=== PATIENT | male | born 1960 | race Caucasian/White ===

== ENCOUNTER → 2018-09-05 | Outpatient (CLI) | payer OTHER ==
--- NOTE | 2018-09-05 15:06 | CARD ---
MR#: [id number] Date of Study: 09/05/2018 Ordering Physician: VENU POND, Referring Physician: VENU POND Tech: Rachel Howell RDCS APPROVED REPORT EXAM: Two-dimensional and M-mode echocardiogram with Doppler and color Doppler. Other Information Quality : Good INDICATION Murmur 2D DIMENSIONS RVDd2.5 (2.9-3.5cm)Left Atrium(2D)3.5 (1.6-4.0cm) IVSd0.8 (0.7-1.1cm)Aortic Root(2D)2.2 (2.0-3.7cm) LVDd5.2 (3.9-5.9cm)LVOT Diameter2.0 (1.8-2.4cm) PWd0.9 (0.7-1.1cm)LVDs3.5 (2.5-4.0cm) FS (%) 33.3 %SV81.5 ml LVEF(%)60.0 (>50%) Aortic Valve AoV Peak Juan.169.5cm/sAoV VTI31.7cm AO Peak GR.11.5mmHgLVOT Peak Juan.125.6cm/s LVOT VTI 26.04cmAO Mean GR.6mmHg NANCI (VMAX)2.17xk3PBD (VTI)2.53cm2 AI P 1/2 [id number] Mitral Valve MV E Dnkufxzq33.5cm/sMV DECEL [id number] MV A Cvtijasp774.3cm/sMV MUZ67zu E/A Ratio0.9MVA (PHT)4.99cm2 TDI E/Lateral E'8.8E/Medial E'12.9 Pulmonary Vein S1 [place]88.0cm/sD2 Ynlcaclp62.1cm/s LEFT VENTRICLE The left ventricle is normal size. There is normal left ventricular wall thickness. The left ventricu lar systolic function is normal and the ejection fraction is within normal range. The Ejection Fracti on is 55-60%. There is normal LV segmental wall motion. Transmitral Doppler flow pattern is Grade I-a bnormal relaxation pattern. RIGHT VENTRICLE The right ventricle is normal size. The right ventricular systolic function is normal. ATRIA The left atrium size is normal. The right atrium size is normal. The interatrial septum is intact wit h no evidence for an atrial septal defect or patent foramen ovale as noted on 2-D or Doppler imaging. AORTIC VALVE The aortic valve is calcified but opens well. Doppler and Color Flow revealed mild to moderate aortic regurgitation. There is no significant aortic valvular stenosis. MITRAL VALVE The mitral valve is calcified but opens well. There is no evidence of mitral valve prolapse. There is no mitral valve stenosis. Doppler and Color-flow revealed mild mitral regurgitation. TRICUSPID VALVE The tricuspid valve is normal in structure and function. Doppler and Color Flow revealed no tricuspid valve regurgitation noted. There is no tricuspid valve stenosis. PULMONIC VALVE The pulmonic valve is not well visualized. Doppler and Color Flow revealed no pulmonic valvular regur gitation. There is no pulmonic valvular stenosis. GREAT VESSELS The aortic root is normal in size. The ascending aorta is normal in size. The IVC is normal in size a nd collapses >50% with inspiration. PERICARDIAL EFFUSION There is no evidence of significant pericardial effusion. Critical Notification Critical Value: No <Conclusion> The left ventricular systolic function is normal and the ejection fraction is within normal range. Th e Ejection Fraction is 55-60%. There is normal LV segmental wall motion. Doppler and Color Flow revealed mild to moderate aortic regurgitation. Signed by : Ricco Woodson, Electronically Approved : 09/05/2018 15:05:31
== END | disposition home or self-care (01) ==
LOC: ECHO 13:48
PROVIDERS: ATTEND Nurse Practitioner Gerontology
DX: I08.0 Rheumatic disorders of both mitral and aortic valves (principal)
CPT/HCPCS: 93306

== ENCOUNTER → 2019-12-21 | Outpatient (CLI) | payer OTHER ==
--- NOTE | 2019-12-21 17:36 | CARD ---
MR#: [id number] Date of Study: 12/21/2019 Ordering Physician: BERRY OSEI, Referring Physician: BERRY OSEI, Tech: Wendy Morejon APPROVED REPORT EXAM: Two-dimensional and M-mode echocardiogram with Doppler and color Doppler. Other Information Quality : AverageHR: 83bpm INDICATION Aortic Valve Disease RISK FACTORS Hypertension Hyperlipidemia Smoking 2D DIMENSIONS RVDd2.7 (2.9-3.5cm)Left Atrium(2D)3.0 (1.6-4.0cm) IVSd0.8 (0.7-1.1cm)Aortic Root(2D)2.7 (2.0-3.7cm) LVDd5.4 (3.9-5.9cm)LVOT Diameter2.1 (1.8-2.4cm) PWd1.0 (0.7-1.1cm)LVDs3.4 (2.5-4.0cm) FS (%) 38.4 %SV98.4 ml LVEF(%)68.2 (>50%) Aortic Valve AoV Peak Juan.189.4cm/sAoV VTI32.6cm AO Peak GR.14.3mmHgLVOT Peak Juan.145.2cm/s LVOT VTI 26.27cmAO Mean GR.7mmHg NANCI (VMAX)2.11ti0EHH (VTI)2.74cm2 AI P 1/2 Vidm991rj Mitral Valve MV E Muewtsaf88.7cm/sMV DECEL [id number] MV A Dovqavgo666.8cm/sMV E Mean Gr.3mmHg MV GDX05xcW/A Ratio0.8 MVA (PHT)3.22cm2 TDI E/Lateral E'12.1E/Medial E'13.9 Pulmonary Valve PV Peak Iirfmnpv238.7cm/sPV Peak Grad.4mmHg Tricuspid Valve TR P. Lfxcmczb956ut/sTR Peak Gr.19mmHg Pulmonary Vein S1 Qnydhhpi72.3cm/sD2 Tmergwct56.4cm/s PVa [id number] LEFT VENTRICLE The left ventricle is normal size. There is normal left ventricular wall thickness. The left ventricu lar systolic function is normal and the ejection fraction is within normal range. The Ejection Fracti on is 55-60%. There is normal LV segmental wall motion. Transmitral Doppler flow pattern is Grade I-a bnormal relaxation pattern. RIGHT VENTRICLE The right ventricle is normal size. There is normal right ventricular wall thickness. The right ventr icular systolic function is normal. ATRIA The left atrium size is normal. The right atrium size is normal. The interatrial septum is intact wit h no evidence for an atrial septal defect or patent foramen ovale as noted on 2-D or Doppler imaging. AORTIC VALVE The aortic valve is calcified but opens well. Doppler and Color Flow revealed moderate aortic regurgi tation. There is no significant aortic valvular stenosis. Calculated aortic valve area is 2.72 cm2 wi th maximum pressure gradient of 18 mmHg and mean pressure gradient of 7 mmHg. MITRAL VALVE The mitral valve is normal in structure and function. There is no evidence of mitral valve prolapse. There is no mitral valve stenosis. Doppler and Color-flow revealed trace mitral regurgitation. TRICUSPID VALVE The tricuspid valve is normal in structure and function. Doppler and Color Flow revealed trace tricus pid regurgitation with an estimated PAP of 22 mmHg. There is no tricuspid valve stenosis. PULMONIC VALVE The pulmonic valve is not well visualized. Doppler and Color Flow revealed no pulmonic valvular regur gitation. There is no pulmonic valvular stenosis. GREAT VESSELS The aortic root is normal in size. The ascending aorta is normal in size. The IVC is normal in size a nd collapses >50% with inspiration. PERICARDIAL EFFUSION There is no evidence of significant pericardial effusion. Critical Notification Critical Value: No <Conclusion> The left ventricular systolic function is normal and the ejection fraction is within normal range. Th e Ejection Fraction is 55-60%. There is normal LV segmental wall motion. Doppler and Color Flow revealed at least moderate aortic regurgitation. Grossly similar in appearance compared to echo of 08/2018 Clinical correlation recommended with respect aortic insufficiency, consider MARSHA for further evaluati on. Signed by : Ricco Woodson, Electronically Approved : 12/21/2019 17:36:17
== END ==
LOC: ECHO 13:36
PROVIDERS: ATTEND Internal Medicine Cardiovascular Disease
DX: I35.1 Nonrheumatic aortic (valve) insufficiency (principal)
CPT/HCPCS: 93306